=== PATIENT | female | born 1975 | race Caucasian/White ===

== ENCOUNTER 2019-06-05 18:45 | Emergency (ER) | payer MEDICAID ==
[~2019-06-05] VITALS: Ht 170.2 cm; Wt 56.3 kg
[~2019-06-05 18:45] MED LIST: PREG100C PO; SUMA25TA3 PO
[2019-06-05 18:48] VITALS: BP 107/76
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
[2019-06-05] MEDS ORDERED: KETOROLAC 30 MG/1 ML IM ONE (19:00)
[2019-06-05] MEDS ORDERED: DIAZEPAM 5 MG TABLET PO ONE (19:00)
--- NOTE | 2019-06-05 19:02 | NUR ---
PLAN FOR PAIN MEDS/XR/EKG
[2019-06-05] MEDS ORDERED: KETOROLAC 30 MG/1 ML ONE (19:03)
[2019-06-05] MEDS ORDERED: DIAZEPAM 5 MG TABLET ONE (19:03)
--- NOTE | 2019-06-05 19:11 | NUR ---
meds per mar. pt to rad.
--- NOTE | 2019-06-05 19:54 | NUR ---
xr normal. ekg complete.
== END 2019-06-05 20:23 | disposition home or self-care (01) ==
LOC: ED 19:45
DX: M54.6 Pain in thoracic spine (principal); R25.2 Cramp and spasm
CPT/HCPCS: 72072; 93005; 96372; 99283; J1885

== ENCOUNTER 2019-06-24 19:16 | Emergency (ER) | payer MEDICAID, OTHER ==
[~2019-06-24] VITALS: Ht 170.2 cm; Wt 54.0 kg
[2019-06-24 19:27] VITALS: BP 124/77
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
== END 2019-06-24 20:59 | disposition home or self-care (01) ==
LOC: ED 20:48
DX: R07.89 Other chest pain (principal); G43.909 Migraine, unspecified, not intractable, without status migrainosus
CPT/HCPCS: 71120; 99283